=== PATIENT | male | born 1970 | race Caucasian/White ===

== ENCOUNTER → 2018-12-25 | Outpatient (CLI) | payer OTHER ==
--- NOTE | 2018-12-25 08:42 | XR ---
EXAMINATION TYPE: XR chest 2V DATE OF EXAM: 12/25/2018 COMPARISON: 07/30/2015 HISTORY: 48-year-old male pneumonitis, sinusitis TECHNIQUE: Frontal and lateral views FINDINGS: The cardiomediastinal silhouette, aorta, and pulmonary vasculature are within normal limits. Mild hyp erinflation. Some stranding densities in the lower lungs. No consolidation or pleural effusion. IMPRESSION: Hyperinflation could relate to a depth of inspiration or underlying emphysema. Clinically correlate. Otherwise, no acute cardiopulmonary process.
--- NOTE | 2018-12-25 08:48 | CT ---
EXAMINATION TYPE: CT sinus wo con DATE OF EXAM: 12/25/2018 COMPARISON: NONE HISTORY: Sinusitis CT DLP: 608 mGycm. Automated Exposure Control for Dose Reduction was Utilized. TECHNIQUE: CT scan of the sinuses is performed without contrast, axial images are obtained, coronal r eformatted images are also reviewed. FINDINGS: There is moderate mucosal thickening in the bilateral maxillary sinuses with inspissated se cretions and air-fluid levels. Nondependent secretions along the anterior wall are also seen on the r ight. Few inspissated secretions are noted within the sphenoid sinus. Mild to moderate mucosal thicke amelia is also seen of the ethmoid sinuses throughout with extent through the left frontal recess into the left frontal sinuses, overall mild in the frontal sinuses. There is very minimal leftward nasal s eptal deviation and a small 3 mm leftward nasal septal spur. The visualized portions of the mastoid a ir cells are well aerated. The left ostiomeatal complex is occluded by mucosal thickening. The right ostiomeatal complex is narrowed but patent. No Emil cells at the ostiomeatal complexes are seen. No contra bullosa. Minimal left inferior nasal turbinate mucosal hypertrophy is present. Bony orbits ar e unremarkable. Temporomandibular joints are symmetric. Exam is not optimized for evaluation of intracranial structures. Few secretions are noted in the post erior nasopharynx. The globes appear intact. Soft tissues are grossly unremarkable. IMPRESSION: 1. Left ostiomeatal occlusion secondary to mucosal thickening. Slight narrowing of the right ostium r enal complex also secondary to mucosal thickening. 2. Moderate mucosal thickening of the maxillary sinuses and mild to moderate of the ethmoid sinuses w ith extent through the left frontal recess and mild left frontal mucosal thickening. 3. Few inspissated secretions within the sphenoid sinuses. 4. Very mild leftward nasal septal deviation and a small leftward projecting nasal septal spur. 5. Minimal inferior left nasal turbinate mucosal hypertrophy.
== END | disposition home or self-care (01) ==
LOC: RADCTMAIN 07:10
PROVIDERS: ATTEND Internal Medicine Infectious Disease
DX: J34.2 Deviated nasal septum (principal); J34.89 Other specified disorders of nose and nasal sinuses; J34.3 Hypertrophy of nasal turbinates; J32.9 Chronic sinusitis, unspecified; J18.9 Pneumonia, unspecified organism
CPT/HCPCS: 70486; 71046

== ENCOUNTER → 2019-03-08 | Outpatient (CLI) | payer OTHER ==
[2019-03-08 11:50] LABS: ALT 35 U/L (21-72); AST 30 U/L (17-59); African American GFR (CKD) >90 (>60 ml/min/1.73 sqM); Albumin 4.1 g/dL (3.5-5.0); Alkaline Phosphatase 91 U/L (38-126); Anion Gap 6 mmol/L; Blood Urea Nitrogen 10 mg/dL (9-20); Calcium 9.3 mg/dL (8.4-10.2); Carbon Dioxide 31 mmol/L (22-30); Chloride 105 mmol/L (98-107); Cholesterol 114 mg/dL (<200); Glucose 99 mg/dL (74-99); HDL Cholesterol 47 mg/dL (40-60); LDL Cholesterol,Calculated 56 mg/dL (0-99); Potassium 4.4 mmol/L (3.5-5.1); Sodium 142 mmol/L (137-145); Total Bilirubin 0.7 mg/dL (0.2-1.3); Total Protein 7.2 g/dL (6.3-8.2); Triglycerides 55 mg/dL (<150)
[2019-03-08 11:52] LABS: Basophils # (A) 0.1 k/uL (0-0.2); Basophils % (A) 2 %; Eosinophils # (A) 0.4 k/uL (0-0.7); Eosinophils % (A) 5 %; HCT 46.4 % (39.0-53.0); HGB 14.6 gm/dL (13.0-17.5); Lymphocytes # (A) 1.6 k/uL (1.0-4.8); Lymphocytes % (A) 23 %; MCH 28.9 pg (25.0-35.0); MCHC 31.4 g/dL (31.0-37.0); MCV 92.2 fL (80.0-100.0); Monocytes # (A) 0.5 k/uL (0-1.0); Monocytes % (A) 7 %; Neutrophils % (A) 60 %; Platelet Count 271 k/uL (150-450); RBC 5.04 m/uL (4.30-5.90); RDW 13.1 % (11.5-15.5); WBC 6.8 k/uL (3.8-10.6)
[2019-03-08 13:54] LABS: Erythrocyte Sedimentation Rate 5 mm/hr (0-15)
--- NOTE | 2019-03-08 17:08 | CT ---
EXAMINATION TYPE: CT chest w con DATE OF EXAM: 03/08/2019 COMPARISON: Chest x-ray 12/25/2018. No interval chest x-rays are available at this location. HISTORY: lung nodule CT DLP: 639 mGycm, Automated exposure control for dose reduction was used. CONTRAST: Performed injected with 100 mL of Isovue 300. TECHNIQUE: Axial images were obtained at 5 mm thick sections. Reconstructed images are reviewed on [employer] computer in the coronal plane. FINDINGS: There are hypodensities within the enlarged right lobe thyroid with the largest measuring 1 .5 cm posterior inferior right lobe. Consider additional workup with ultrasound. No suspicious lung nodules or focal infiltrates are present. No suspicious lung nodules are identifie d. No enlarged mediastinal or hilar adenopathy is evident. The ascending aorta diameter at the level o f the main pulmonary artery is 3.6 cm. The main pulmonary artery diameter at the bifurcation is 2.[address] sections are obtained through the upper abdomen. Small cortical renal cysts are evident. IMPRESSIONS: 1. No suspicious lung nodules identified. 2. Right Thyroid nodule identified. Recommend ultrasound for additional workup.
== END | disposition home or self-care (01) ==
LOC: RADCTMAIN 10:47
PROVIDERS: ATTEND Nurse Practitioner Family
DX: J98.4 Other disorders of lung (principal); R05 Cough; E04.1 Nontoxic single thyroid nodule; Z72.0 Tobacco use; Z00.00 Encounter for general adult medical examination without abnormal findings; R31.29 Other microscopic hematuria; R53.83 Other fatigue; E66.9 Obesity, unspecified; L60.5 Yellow nail syndrome
CPT/HCPCS: 80061; 80053; 85652; 82607; 84443; 85025; 86038; 71260; Q9967

== ENCOUNTER → 2019-04-29 | Outpatient (CLI) | payer OTHER ==
--- NOTE | 2019-04-30 10:45 | US ---
EXAMINATION TYPE: US thyroid st tissue head/neck DATE OF EXAM: 04/29/2019 COMPARISON: CT CLINICAL HISTORY: E04.1 THYROID NODULE. Thyroid nodule seen on CT scan. GLAND SIZE: Right Lobe: 6.3 x 2.6 x 3.2 cm. Limited measurement. Appears enlarged. Overall Parenchyma: Slightly heterogeneous Left Lobe: 5.5 x 2.0 x 1.8 cm Overall Parenchyma: Slightly heterogeneous Isthmus Thickness: 0.4 cm NODULES RIGHT: # of nodules measured on right: 3 1. 3.3 X 2.1 x 1.9 cm isoechoic mixed nodule at the lower pole with well-defined margins. This nod ule is wider than tall and shows intranodular vascularity. Prior size: no prior 2. 3.0 X 2.1 x 1.2 cm hypoechoic solid nodule at the mid pole with well-defined margins. This nodul e is wider than tall and shows intranodular vascularity. Prior size: no prior 3. 0.8 X 0.6 x 0.6 cm hypoechoic solid nodule at the superior-mid pole with poorly defined margins. This nodule is as tall as it is wide and shows intranodular vascularity. Prior size: no prior LEFT: # of nodules measured on left: 1 1. 0.9 X 0.8 x 0.9 cm mixed nodule at the lower pole with well-defined margins. This nodule is soraya ler than wide and shows peripheral vascularity. Prior size: no prior ISTHMUS: # of nodules measured in the isthmus: 0 Bilateral neck scanned, no evidence of lymphadenopathy. IMPRESSION: Nonspecific thyroid nodularity with glandular enlargement and heterogeneity. Correlate with thyroid f unction testing.
== END | disposition home or self-care (01) ==
LOC: RADUSWWP 17:11
PROVIDERS: ATTEND Family Medicine
DX: E04.1 Nontoxic single thyroid nodule (principal)
CPT/HCPCS: 76536

== ENCOUNTER → 2019-04-29 | Outpatient (CLI) | payer OTHER ==
--- NOTE | 2019-04-30 07:00 | XR ---
EXAMINATION TYPE: XR elbow complete RT DATE OF EXAM: 04/29/2019 CLINICAL HISTORY: pain TECHNIQUE: Frontal, lateral and oblique images of the right elbow are obtained. COMPARISON: None. FINDINGS: There is no acute fracture/dislocation evident of the elbow. No abnormal fat pad signs ar e seen. The overlying soft tissue appears unremarkable. IMPRESSION: There is no acute fracture or dislocation of the elbow. ICD 10 NO FRACTURE, INITIAL EVALUATION
== END | disposition home or self-care (01) ==
LOC: RADXRMAIN 17:45
PROVIDERS: ATTEND Family Medicine
DX: M25.521 Pain in right elbow (principal)

== ENCOUNTER 2019-06-27 09:29 | Day surgery (SDC) | payer OTHER ==
[2019-06-27 09:46] VITALS: RESP 16; TEMP 97.6
[2019-06-27 10:50] VITALS: BP 119/71; PULSE 56
--- NOTE | 2019-06-27 16:29 | US ---
ULTRASOUND GUIDED FNA THYROID BIOPSY: CLINICAL HISTORY: Request for 2 right-sided thyroid nodule FNA FINDINGS: The procedure was explained to the patient. The risks, complications, benefits and alternatives were discussed and any questions were answered. Informed consent was obtained. Patient was placed supin e on the ultrasound table and prepped and draped in the usual sterile fashion. Utilizing a 25 gauge needle, five passes were made into the the 2 right-sided requested thyroid nodules. Patient was stable throughout the procedure. Pathology is pending. All elements of maximal barrier technique were utilized. IMPRESSION: 1. Successful ultrasound guided FNA thyroid biopsy.
== END 2019-06-27 10:46 | disposition home or self-care (01) ==
LOC: RADPROMAIN 09:29
PROVIDERS: ATTEND Surgery
DX: E04.2 Nontoxic multinodular goiter (principal)
CPT/HCPCS: 10005; 10006; 88173; 88305

== ENCOUNTER → 2019-07-01 | Outpatient (CLI) | payer OTHER ==
[2019-07-01 23:51] LABS: ALT 36 U/L (10-49); AST 25 U/L (14-35); African American GFR (CKD) 121.6 (60.0-200.0); Albumin/Globulin Ratio 2.05 (1.60-3.17); Alkaline Phosphatase 105 U/L (41-126); C Reactive Protein <0.4 mg/dL (0.0-0.8); Calcium 9.1 mg/dL (8.7-10.3); Carbon Dioxide 28.4 mmol/L (21.6-31.8); Chloride 105 mmol/L (96-109); Globulin 2.2 g/dL (1.6-3.3); Glucose 115 mg/dL (70-110); Non-African American GFR(CKD) 104.9 (60.0-200.0); Potassium 4.5 mmol/L (3.5-5.5); Rheumatoid Factor, Qnt 4 IU/mL (0-15); Sodium 141 mmol/L (135-145); Total Bilirubin 0.3 mg/dL (0.3-1.2); Total Protein 6.7 g/dL (6.2-8.2)
[2019-07-02 06:03] LABS: Cyclic Citrull Pep IgG Unit 0.5 U/mL; Cyclic Citrullinated Pep IgG NEGATIVE (NEGATIVE)
== END | disposition home or self-care (01) ==
LOC: LABWHC1 16:54
PROVIDERS: ATTEND Family Medicine
DX: B35.1 Tinea unguium (principal); L60.5 Yellow nail syndrome; R31.29 Other microscopic hematuria; E04.1 Nontoxic single thyroid nodule
CPT/HCPCS: 36415; 80053; 84443; 85652; 86038; 86140; 86200; 86431